=== PATIENT | male | born 1940 | race Caucasian/White ===

== ENCOUNTER → 2020-07-17 | Outpatient (CLI) | payer OTHER ==
[~2020-07-17] MED LIST: ACID REDUCER20 MG PO; DILTIAZEM HCL30 MG PO; ELIQUIS5 MG PO; MAGNESIUM250 M1 PO; PROPAFENONE 15150 MG PO; PROSCAR 5MG TABL5 MG PO; PROTONIX40 M2 PO; ROSUVASTATIN CAL5 MG PO; TOPROL XL25 MG PO; TYLENOL EXTRA500 MG PO; VENTOLIN HFA 1818 GM INH; VITAMIN C1000 MG PO; VITAMIN D310 MC1 PO; ZINC30 MG PO
== END ==
LOC: LAB 10:22
PROVIDERS: ATTEND Ophthalmology
DX: Z01.812 Encounter for preprocedural laboratory examination (principal); Z20.828 Contact with and (suspected) exposure to other viral communicable diseases

== ENCOUNTER → 2020-07-20 | Day surgery (SDC) | payer OTHER ==
[~2020-07-20] VITALS: Ht 177.8 cm; Wt 78.5 kg
[2020-07-20 07:41] VITALS: BP 153/63
--- NOTE | 2020-07-24 06:23 | O ---
[facility] [place] [address] OPERATIVE REPORT Name: AMADEO CLARK Room #: REG [facility]#: [id number] Admission: 07/20/20 Attend Phys: Peter Middleton MD Discharge: Date of : 36 Report #: [id number] THIS REPORT FOR: cc: Awilda Boucher MD, Emily G. MD White,Peter Townsend MD ~ CC: Awilda Middleton DATE OF SERVICE: 07/20/2020 PREOPERATIVE DIAGNOSIS: Lesion of right lower lid. POSTOPERATIVE DIAGNOSIS: Basal cell carcinoma of the right lower lid and canthus. PROCEDURE: Excision of tumor of right lower lid and canthus with frozen section, control of margins and myocutaneous flap repair of defect. SURGEON: Peter Middleton MD. HEAT TREATER APPRENTICE: None. ANESTHESIA: MAC. COMPLICATIONS: None. INDICATIONS FOR SURGERY: This pleasant 80-year-old gentleman has a pearly nodule in his lateral right lower lid that appears to be a basal cell carcinoma. He presents today for excision of this lesion with repair of the ensuing defect. Informed consent was obtained to include but not limited to the potential risk for loss of vision, bleeding, infection, failure to improve the problem, the potential need for further surgery or treatment. DESCRIPTION OF PROCEDURE: The patient was taken to the operating room where 2% Xylocaine with epinephrine mixed with equal parts 0.75% Marcaine with Wydase was administered transcutaneously and transconjunctivally to the right lower lid, the right lateral canthus, the right cheek and the right infratemporal fossa. The patient was subsequently prepped and draped in the usual sterile fashion. A fine tip skin marking pen was then utilized to outline the lesion including approximately 2 mm of normal tissue. The incisions were then made perpendicularly across the eyelid margin and drawn down to a point in the premalar space. Hemostasis was achieved in the field with diligent pinpoint monopolar cautery. The specimen was then oriented on a drawing for the [address] [address] OPERATIVE REPORT Name: AMADEO CLARK Room #: [place] [facility] [place]#: [id number] Admission: 07/20/20 Attend Phys: Peter Middleton MD Discharge: Date of : 36 Report #: [id number] pathologist. She snap froze the specimen and found that it was indeed a basal cell carcinoma in the lateral margin still appeared to be positive. An additional aliquot of tissue was then taken laterally, which extended back over the lateral aspect of the orbit. This tissue was then oriented on a drawing for the pathologist. She snap froze that tissue and found that the margins at this point appeared to be free of tumor. The defect was larger than what had been anticipated preoperatively. A myocutaneous flap was then developed laterally from the infratemporal fossa and rotated into position to correct that defect. Hemostasis was then re-achieved. The flap was then advanced and secured with multiple interrupted 5-0 Vicryl sutures deep. The eyelid margin was reapproximated with interrupted 7-0 Vicryl sutures. The subcutaneous structures and the skin were then closed with interrupted buried Vicryl sutures deep and then a final closure of 6-0 plain in the skin. The wounds were then cleaned and dressed with erythromycin ophthalmic ointment. The patient subsequently transported to the recovery area having tolerated the procedure well with no anesthetic or operative complications being noted. <ELECTRONICALLY SIGNED> By: Peter Middleton MD 07/24/20 0623 [id number] [id number] Peter Middleton MD /nt
--- NOTE | 2020-07-24 09:06 | PATH ---
[facility] [place] [address] PATHOLOGY RPT PROCEDURE Name: AMADEO CLARK Room #: REG [facility]#: [id number] Admission: 07/20/20 Date of : 36 Discharge: Report #: [id number] Path Case #: [id number] [facility] Accession Number: [id number] . 01 Material submitted: . PART A: eye - EYE LESION RIGHT LOWER FS. Modifiers: right, lower PART B: eye - ADDITIONAL EYE LESION RIGHT LOWER. Modifiers: right, lower . 01 Clinical history: . EXCISION LESION EYE EXCISION EYE LEISON WITH FLAP REPAIR . 02 Frozen section diagnosis: . FROZEN SECTION DIAGNOSIS: (by Dr. Amaya Diez) FSA1. Eye lesion right lower lid, excision: - BASAL CELL CARCINOMA AT LATERAL MARGIN. . FSB1. Eye lesion additional right lower: - No definitive invasive carcinoma present at new lateral margin. . These findings are discussed with Dr. Peter Middleton in OR6 at [facility] and a written report is placed in the patient's chart. . (IUV:pit 07/20/2020) . FROZEN SECTION GROSS DESCRIPTION: A. Received fresh from the OR labeled with the patient's name and "eye lesion right lower" consists of an inverted triangular specimen measuring 0.6 cm from base to height, and 0.6 cm along the base. The specimen is oriented as medial, inferior, and lateral. The specimen is inked black from medial to inferior, the lower half of the lateral margin is inked blue and the superior half of the lateral margin is inked green. The deep inked margin is inked orange. The specimen is sectioned into three pieces and submitted entirely for frozen section as FSA1, this is subsequently submitted for permanent sections as A1. . B. Received fresh from the OR labeled with the patient's name and "eye lesion right lower (additional)" consists of a thin strip of skin associated with underlying soft tissue measuring 0.6 cm in length. The new margin is inked blue by the surgeon. This is designated the true margin (new margin). It is submitted en-face for frozen section as FSB1. This is subsequently submitted for permanent sections as B1. . (IUV:pit 07/20/2020) . Frozen section performed at [facility], [address] [place] [address] , [place] [address]. IZV/QTP [facility] [address] [place] [address] PATHOLOGY RPT PROCEDURE Name: CLARKAMADEO [id number] Admission: 07/20/20 Date of : 36 Discharge: Report #: [id number] Path Case #: [id number] . 02 Diagnosis: A. Skin, eye lesion right lower lid, excision: - FOCAL BASAL CELL CARCINOMA PRESENT. - LATERAL MARGIN FOCALLY POSITIVE. - Remainder margins free of malignancy. . B. Skin, additional eye lesion right lower lid, re-excision: - FOCAL RESIDUAL BASAL CELL CARCINOMA PRESENT AT OLD MARGIN. - New margin (frozen section slides) free of malignancy. (IUV:[facility] 07/21/2020) . [facility] 07/21/2020 1346 Local . 02 Electronically signed: . Amaya Diez MD, Pathologist NPI- [id number] . 01 Gross description: . SEE FROZEN SECTION FOR GROSS DESCRIPTION. /[facility] 07/20/2020 1200 Local . 02 Pathologist provided ICD-10: C44.1122 . 02 CPT . 341735, 807333, 112786, [id number] Specimen Comment: A courtesy copy of this report has been sent to [phone] Specimen Comment: Report sent to Performed at: [address], [place], [place] [id number] MD Gallo Ovalles MD Phone: [phone] Performed at: [address] [id number] MD Amaya Diez MD Phone: [phone]
== END | disposition home or self-care (01) ==
LOC: OR 06:19
PROVIDERS: ATTEND Ophthalmology
DX: C44.1122 Basal cell carcinoma of skin of right lower eyelid, including canthus (principal); I10 Essential (primary) hypertension; I48.91 Unspecified atrial fibrillation; K21.9 Gastro-esophageal reflux disease without esophagitis; Z98.890 Other specified postprocedural states; Z79.899 Other long term (current) drug therapy; Z87.891 Personal history of nicotine dependence; Z90.49 Acquired absence of other specified parts of digestive tract; Z79.01 Long term (current) use of anticoagulants
CPT/HCPCS: 50010; 50101; 50386; 50398; 51636; 56528; 56531; 62110; 62850; 70005